=== PATIENT | female | born 1950 | race Caucasian/White ===

== ENCOUNTER → 2018-04-26 11:31 | Outpatient (CLI) | payer MEDICARE, OTHER, SELFPAY ==
--- NOTE | 2018-04-26 | DI.MG.S_ITS ---
BILATERAL DIGITAL SCREENING MAMMOGRAM 3D/2D WITH CAD: 04/26/2018 CLINICAL: Routine screening. Comparison is made to exams dated: 04/03/2016 mammogram and 06/25/2014 mammogram - [facility]. The tissue of both breasts is heterogeneously dense. This may lower the sensitivity of mammography. Current study was also evaluated with a Computer Aided Detection (CAD) system. No significant masses, calcifications, or other findings are seen in either breast. There has been no significant interval change. IMPRESSION: NEGATIVE There is no mammographic evidence of malignancy. A 1 year screening mammogram is recommended. This exam was interpreted at Station ID: [id number]. NOTE: For mammograms, a report in lay terms will be sent to the patient. Approximately 15% of breast malignancies will not be visualized mammographically. In the management of a palpable breast mass, a negative mammogram must not discourage biopsy of a clinically suspicious lesion. Electronically Signed By: Vianney payan/matias:04/27/2018 13:41:14 letter sent: Normal Exam ACR BI-RADS Category 1: Negative 3341F
== END ==
PROVIDERS: Visit Provider Physician Assistant
DX: Z12.31 Encounter for screening mammogram for malignant neoplasm of breast (principal)
CPT/HCPCS: 77063; 77067

== ENCOUNTER → 2019-02-23 14:37 | Outpatient (CLI) | payer MEDICARE, OTHER, SELFPAY ==
[2019-02-23 15:52] LABS: Progesterone, Total 6.28 ng/mL
[2019-02-23 16:24] LABS: Free T3, Triiodothyronine Free 3.61 pg/mL (2.77-5.27)
[2019-02-23 16:37] LABS: Cortisol Random 6.45 ug/dL
[2019-02-23 16:38] LABS: Thyroid Stimulating Hormone 1.18 uIU/mL (0.47-4.68)
[2019-02-23 16:40] LABS: Testosterone 48.7 ng/dL (5.71-77.0)
[2019-02-25 15:49] LABS: Dehydroepiandrosterone Sulfate 136 mcg/dL (12-133)
== END ==
PROVIDERS: Family Provider Physician Assistant; PCP Physician Assistant
DX: Z79.890 Hormone replacement therapy (principal); E03.9 Hypothyroidism, unspecified; N95.1 Menopausal and female climacteric states
CPT/HCPCS: 36415; 82533; 82627; 82670; 84144; 84403; 84443; 84481

== ENCOUNTER → 2019-03-09 14:19 | Outpatient (CLI) | payer MEDICARE, OTHER, SELFPAY ==
[2019-03-11 16:14] LABS: Dehydroepiandrosterone Sulfate 93 mcg/dL (12-133)
== END ==
PROVIDERS: PCP Physician Assistant; Visit Provider Naturopath
DX: Z79.890 Hormone replacement therapy (principal)
CPT/HCPCS: 36415; 82627

== ENCOUNTER → 2019-05-01 14:10 | Outpatient (CLI) | payer MEDICARE, OTHER, SELFPAY | PROVIDERS: PCP Physician Assistant; Referring Provider Physician Assistant; Visit Provider Physician Assistant | DX: M85.852 Other specified disorders of bone density and structure, left thigh (principal); Z78.0 Asymptomatic menopausal state; E28.39 Other primary ovarian failure | CPT/HCPCS: 77080 ==

== ENCOUNTER → 2019-08-14 15:53 | Outpatient (CLI) | payer MEDICARE, OTHER, SELFPAY | PROVIDERS: PCP Physician Assistant; Referring Provider Naturopath; Visit Provider Naturopath | DX: Z79.890 Hormone replacement therapy (principal) | CPT/HCPCS: 36415; 82627 ==

== ENCOUNTER → 2019-09-20 12:18 | Outpatient (CLI) | payer MEDICARE, OTHER, SELFPAY ==
[2019-09-20 13:45] LABS: C-Reactive Protein Quant < 0.5 mg/dL (<1.0); Rheumatoid Factor < 8.6 IU/mL (<12.0)
[2019-09-20 16:10] LABS: Vitamin D 25 Hydroxy (D3) 72.1 ng/mL (30.0-100.0)
[2019-09-23 18:40] LABS: ANA Screen, IFA Positive (.)
== END ==
PROVIDERS: PCP Physician Assistant; Referring Provider Naturopath; Visit Provider Naturopath
DX: M85.89 Other specified disorders of bone density and structure, multiple sites (principal); M25.50 Pain in unspecified joint; M85.80 Other specified disorders of bone density and structure, unspecified site
CPT/HCPCS: 36415; 82306; 86038; 86140; 86430

== ENCOUNTER → 2020-04-10 17:19 | Outpatient (CLI) | payer MEDICARE, OTHER, SELFPAY ==
--- NOTE | 2020-04-10 | DI.MG.S_ITS ---
BILATERAL DIGITAL SCREENING MAMMOGRAM 3D/2D WITH CAD: 04/10/2020 CLINICAL: Routine screening. Comparison is made to exams dated: 04/26/2018 mammogram - [facility], 04/03/2016 mammogram, and 06/25/2014 mammogram - [facility]. The tissue of both breasts is heterogeneously dense. This may lower the sensitivity of mammography. Current study was also evaluated with a Computer Aided Detection (CAD) system. No significant masses, calcifications, or other findings are seen in either breast. There has been no significant interval change. IMPRESSION: NEGATIVE There is no mammographic evidence of malignancy. A 1 year screening mammogram is recommended. This exam was interpreted at Station ID: [id number]. NOTE: For mammograms, a report in lay terms will be sent to the patient. Approximately 15% of breast malignancies will not be visualized mammographically. In the management of a palpable breast mass, a negative mammogram must not discourage biopsy of a clinically suspicious lesion. Electronically Signed By: John Lugo acr/matias:04/12/2020 17:18:32 letter sent: Normal Exam ACR BI-RADS Category 1: Negative 3341F
== END ==
PROVIDERS: PCP Physician Assistant; Referring Provider Physician Assistant; Visit Provider Physician Assistant
DX: Z12.31 Encounter for screening mammogram for malignant neoplasm of breast (principal)
CPT/HCPCS: 77063; 77067

== ENCOUNTER → 2021-06-17 09:42 | Outpatient (CLI) | payer MEDICARE, OTHER, SELFPAY | PROVIDERS: PCP Physician Assistant; Referring Provider Physician Assistant; Visit Provider Physician Assistant | DX: Z13.820 Encounter for screening for osteoporosis (principal); Z78.0 Asymptomatic menopausal state ==

== ENCOUNTER → 2021-07-08 10:45 | Outpatient (CLI) | payer MEDICARE, OTHER, SELFPAY | PROVIDERS: PCP Physician Assistant; Referring Provider Physician Assistant; Visit Provider Physician Assistant | DX: Z78.0 Asymptomatic menopausal state (principal); Z13.820 Encounter for screening for osteoporosis; M85.852 Other specified disorders of bone density and structure, left thigh; Z79.890 Hormone replacement therapy | CPT/HCPCS: 77080 ==

== ENCOUNTER → 2021-10-22 10:39 | Outpatient (CLI) | payer MEDICARE, OTHER, SELFPAY ==
--- NOTE | 2021-10-22 10:45 | DI.MRI.S_ITS ---
PROCEDURE: MR CERVICAL SPINE WO CON INDICATIONS: Radiculopathy, cervical region TECHNIQUE: Noncontrast sagittal T1 spin echo and T2 fast spin echo, sagittal STIR, foraminal oblique sagittal T2 fast spin echo, and axial gradient echo or T2 fast spin echo through the cervical spine. COMPARISON: None. FINDINGS: Image quality: Excellent. Alignment and Curvature: There is overall straightening of the normal cervical lordosis. There is mild retrolisthesis seen at the C4-C5 level. Bone Marrow: Marrow demonstrates normal overall signal. Spinal Cord: Visualized spinal cord has normal size and signal. No cerebellar tonsillar herniation. Paraspinous Soft Tissues: No paravertebral masses. Prevertebral soft tissues are normal in thickness. C2-C3: Moderate loss of disc height is seen. Loss of disc signal is seen. A mild degree of generalized disc osteophyte complex is seen. No significant neural foraminal or central canal narrowing can be seen. C3-C4: The disc height is well-preserved. Loss of disc signal is seen at this level. Mild to moderate disc osteophyte complex is seen, which is eccentric to the right. There is at least moderate right-sided and moderate left-sided facet hypertrophy. There is moderate to severe right-sided and at least moderate left-sided neural foraminal narrowing. Mild central canal narrowing is seen. C4-C5: Moderate to severe loss of disc height and disc signal can be seen. At least moderate disc osteophyte complex is seen. There is a central disc osteophyte protrusion seen. Uncovertebral joint hypertrophy is seen at this level. At least moderate facet hypertrophy is seen. There is moderate to severe bilateral neural foraminal narrowing seen. At least moderate central canal narrowing is seen, with associated ventral cord flattening, as on series 4, image 23. C5-C6: Moderate loss of disc height is seen. Loss of disc signal is seen. Reactive marrow endplate changes are seen, which are hyperintense on T1-weighted and T2-weighted imaging and most consistent with fatty metaplasia (Modic type II changes). At least moderate disc osteophyte complex is seen. There is a central/right disc osteophyte protrusion. Uncovertebral joint hypertrophy is seen at this level. At least moderate facet hypertrophy is seen. There is moderate to severe bilateral neural foraminal narrowing seen. At least moderate central canal narrowing is seen. There is associated mass effect upon the ventral spinal cord. C6-C7: At least moderate loss of disc height and disc signal can be seen. At least moderate disc osteophyte complex is seen, which is eccentric to the left. There is a central/right disc osteophyte protrusion. Mild to moderate facet hypertrophy is seen at this level. There is moderate to severe bilateral neural foraminal narrowing seen, with an associated a degree of compression seen upon the exiting nerve roots. At least moderate central canal narrowing is seen. There is associated mass effect upon the ventral spinal cord. C7-T1: The disc height is well-preserved. Loss of disc signal is seen at this level. A mild degree of generalized disc osteophyte complex is seen. Mild facet joint hypertrophy is seen. No significant neural foraminal or central canal narrowing can be seen. IMPRESSION: Multiple levels of relatively prominent cervical spine degenerative change are seen, which are overall worst at the C4-C5 level. Straightening of the normal cervical lordosis is seen, which is commonly observed in patients with muscular spasm. Dictated by: Sourav Paez M.D. on 10/22/2021 at 14:28 Approved by: Sourav Paez M.D. on 10/22/2021 at 14:33
== END ==
PROVIDERS: PCP Physician Assistant; Referring Provider Physician Assistant; Visit Provider Physician Assistant
DX: M47.22 Other spondylosis with radiculopathy, cervical region
CPT/HCPCS: 72141

== ENCOUNTER → 2022-06-25 10:07 | Outpatient (CLI) | payer MEDICARE, OTHER, SELFPAY ==
--- NOTE | 2022-06-25 | DI.MG.S_ITS ---
BILATERAL DIGITAL SCREENING MAMMOGRAM 3D/2D WITH CAD: 06/25/2022 CLINICAL: Routine screening. Comparison is made to exams dated: 04/10/2020 mammogram, 04/26/2018 mammogram - [facility], and 04/03/2016 mammogram - [facility]. Both breasts are heterogeneously dense, which may obscure small masses (category c / 51-75% glandular tissue). Current study was also evaluated with a Computer Aided Detection (CAD) system. No significant masses, calcifications, or other findings are seen in either breast. There has been no significant interval change. IMPRESSION: NEGATIVE There is no mammographic evidence of malignancy. A 1 year screening mammogram is recommended. Based on the Tyrer Cuzick model (a risk assessment model) the patient's lifetime risk is 9.1% and her 10 year risk is 5.8%. According to the ACR, ACS, and NCCN guidelines, an annual breast MRI exam along with mammogram is recommended if the patient's lifetime risk is 20% or greater. This exam was interpreted at Station ID: [id number]. NOTE: For mammograms, a report in lay terms will be sent to the patient. Approximately 15% of breast malignancies will not be visualized mammographically. In the management of a palpable breast mass, a negative mammogram must not discourage biopsy of a clinically suspicious lesion. Electronically Signed By: Mg coles/matias:06/25/2022 13:00:29 letter sent: Normal Exam ACR BI-RADS Category 1: Negative 3341F
== END ==
PROVIDERS: PCP Physician Assistant; Referring Provider Physician Assistant; Visit Provider Physician Assistant
DX: Z12.31 Encounter for screening mammogram for malignant neoplasm of breast (principal)
CPT/HCPCS: 77063; 77067

== ENCOUNTER → 2022-08-19 10:47 | Outpatient (CLI) | payer MEDICARE, OTHER, SELFPAY ==
--- NOTE | 2022-08-19 | DI.RAD.S_ITS ---
PROCEDURE: XR HIP W PEL IF DONE RT 2V INDICATIONS: Pain in right hip TECHNIQUE: 2 views of the hip were acquired. COMPARISON: None. FINDINGS: Bones: No fractures or dislocations. No suspicious bony lesions. The visualized pelvic ring appears intact. Moderate bilateral hip joint space narrowing and subchondral sclerosis present. No marginal osteophyte. Femoral head has an appropriate contour. Mild degenerative changes noted in the lower lumbar spine Soft tissues: No suspicious soft tissue calcifications or masses. IMPRESSION: [id number] bilateral hip osteoarthritis Approved by: Juan San M.D. on 08/19/2022 at 13:02
== END ==
PROVIDERS: PCP Physician Assistant; Referring Provider Physician Assistant; Visit Provider Physician Assistant
DX: M25.551 Pain in right hip (principal); M16.0 Bilateral primary osteoarthritis of hip
CPT/HCPCS: 73502

== ENCOUNTER → 2023-02-22 16:10 | Outpatient (CLI) | payer MEDICARE, OTHER, SELFPAY ==
--- NOTE | 2023-02-22 | DI.US.S_ITS ---
PROCEDURE: US PELVIC COMPLETE INDICATIONS: POST MENOPAUSAL BLEEDING TECHNIQUE: Real-time scanning was performed of the pelvic organs, with image documentation. Additional endovaginal scanning was necessary due to incomplete visualization of the adnexal and endometrial structures by transabdominal scanning. COMPARISON: None. FINDINGS: Uterus: Uterus is anteverted and normal in size at 6.8 x 3.2 x 4.4 cm. The myometrium is heterogeneous. The endometrium measures 3 mm combined thickness. Ovaries: The right ovary measures 1.2 x 1.0 x 0.6 cm, with a calculated ovarian volume of 0.37 cc. The left ovary measures 2.1 x 1.4 x 1.3 cm, with a calculated ovarian volume of 1.99 cc. The ovaries have a normal sonographic appearance. Less than 12 follicles can be seen in each ovary. No adnexal masses are seen. Other: No pathologic free abdominal or pelvic fluid. IMPRESSION: 1. Endometrium is within normal limits for thickness in a postmenopausal patient with bleeding (less than 4 mm). We strive to produce accurate, complete, and clear reports of imaging services. To assist us in improving patient care, this report was composed using standard report templates and voice recognition software. Therefore, it may contain abnormal punctuation, insertions and/or omissions. Occasional wrong-word or sound-alike substitutions may occur. Though we review the report and make efforts to correct it, we do recommend that the report be read carefully in proper context to recognize any text inaccuracies. Dictated by: Priti Leahy M.D. on 02/22/2023 at 17:38 Approved by: Priti Leahy M.D. on 02/22/2023 at 17:39
== END ==
PROVIDERS: PCP Physician Assistant; Referring Provider Physician Assistant; Visit Provider Physician Assistant
DX: N95.0 Postmenopausal bleeding (principal)
CPT/HCPCS: 76856

== ENCOUNTER → 2023-08-24 14:50 | Outpatient (CLI) | payer MEDICARE, OTHER, SELFPAY ==
--- NOTE | 2023-08-24 14:53 | DI.RAD.S_ITS ---
PROCEDURE: XR DEXA AXIAL SKELETON INDICATIONS: ASYMPTOMATIC MENOPAUSAL STATE COMPARISON: [facility], CR, XR DEXA AXIAL SKELETON, 07/08/2021, 11:01. [facility], CR, XR DEXA AXIAL SKELETON, 05/01/2019, 14:26. FINDINGS: Lumbar Spine: Bone mineral density 1.156 g/cm2, T score 1.0, previously 0.5. Right Hip: Bone mineral density 0.937 g/cm2, T score 0, previously 0. Right Femoral Neck: Bone mineral density 0.808 g/cm2, T score -0.4, normal. Left Hip: Bone mineral density 0.912 g/cm2, T score -0.2, previously -0.3. Left Femoral Neck: Bone mineral density is 0.679 g/cm2, T score -1.5, osteopenia. Fracture Risk Calculation (when applicable): 10-year fracture risk of a major osteoporotic fracture 10 and of a hip fracture 1.6. (T score greater or equal to -1.0 to: NORMAL) (T score from -1.1 to -2.4: OSTEOPENIA) (T score less than or equal to -2.5: OSTEOPOROSIS) IMPRESSION: Osteopenia. Follow-up guidelines as follows: Osteoporosis: Consider a repeat DEXA and Vertebral Fracture Assessment (VFA) exam in 2 years or sooner if medically necessary, to reassess this patient's status. Osteopenia: Consider a repeat DEXA in 2-3 years to reassess this patient's status, or if there is a new clinical indication. Normal: Consider a repeat DEXA in 5 years or sooner, or if there is a new clinical indication. All treatment decisions require clinical judgment and consideration of individual patient factors, including patient preferences, comorbidities, previous drug use, risk factors not captured in the FRAX model (e.g., frailty, falls, vitamin D deficiency, increased bone turnover, interval significant decline in bone density ) and possible under- or over-estimation of fracture risk by FRAX. In addition, the NOF Guide recommends that FDA-approved medical therapies be considered in postmenopausal women and men age >= 50 years with a: * Hip or vertebral (clinical or morphometric) fracture * T-score of <=-2.5 at the spine or hip * Ten-year fracture probability by FRAX of >= 3% for hip fracture or >=20% for major osteoporotic fracture. People with diagnosed cases of osteoporosis or at high risk for fracture should have regular bone mineral density tests. For patients eligible for Medicare, routine testing is allowed once every 2 years. The testing frequency can be increased to one year for patients who have rapidly progressing disease, those who are receiving or discontinuing medical therapy to restore bone mass, or have additional risk factors. Dictated by: Santana Bright M.D. on 08/24/2023 at 17:05 Approved by: Santana Bright M.D. on 08/24/2023 at 17:06
== END ==
LOC: RAD 14:51
PROVIDERS: PCP Physician Assistant; Referring Provider Physician Assistant; Visit Provider Physician Assistant
DX: M85.852 Other specified disorders of bone density and structure, left thigh (principal); Z78.0 Asymptomatic menopausal state
CPT/HCPCS: 77080

== ENCOUNTER → 2024-10-04 14:10 | Outpatient (CLI) | payer MEDICARE, OTHER, SELFPAY ==
--- NOTE | 2024-10-04 14:11 | DI.MG.S_ITS ---
MM screening mammo BI: 10/04/2024. BI-RADS: 1 CLINICAL: 73-year old female for bilateral screening mammogram. Tyrer-Cuzick lifetime risk of 7.0%. No personal or first-degree family history of breast cancer. PRIOR EXAMS 06/25/2022, 04/10/2020, 04/26/2018. MAMMOGRAPHY TECHNIQUE: 2D and 3D (tomosynthesis) digital mammographic views obtained, with additional images as needed for full coverage. Current study was also evaluated with a Computer Aided Detection (CAD) system. DENSITY C. The breasts are heterogeneously dense, which may obscure small masses. MAMMOGRAPHY FINDINGS Bilateral: No suspicious mass, asymmetry, microcalcification, or other abnormality seen. IMPRESSION: * No evidence of malignancy. RECOMMENDATIONS Bilateral * Annual screening mammography. OVERALL ASSESSMENT CATEGORY BI-RADS-1: Negative. The [employer] recommends annual screening mammography beginning at age 40 for women with average risk of breast cancer. ELECTRONICALLY SIGNED: Ankush Soto M.D. on 10/04/2024 at 07:30:01 PM PT Interpreting Station ID: [id number]
== END ==
LOC: MAMMO 14:11
PROVIDERS: PCP Physician Assistant; Referring Provider Physician Assistant; Visit Provider Physician Assistant
DX: Z12.31 Encounter for screening mammogram for malignant neoplasm of breast (principal); R92.333 Mammographic heterogeneous density, bilateral breasts
CPT/HCPCS: 77063; 77067

== ENCOUNTER → 2025-01-12 11:36 | Outpatient (CLI) | payer MEDICARE, OTHER, SELFPAY ==
--- NOTE | 2025-01-12 11:39 | DI.RAD.S_ITS ---
PROCEDURE: XR HAND RT MIN 3V INDICATIONS: Right distal medial hand pain TECHNIQUE: 3 views of the hand(s) acquired. COMPARISON: None. FINDINGS: Bones: No fractures or dislocations. Carpal bones are normally aligned. No suspicious bony lesions. Significant interphalangeal osteoarthritis. Soft tissues: No suspicious soft tissue calcifications. IMPRESSION: A significant interphalangeal osteoarthritis. Dictated by: Santana Bright M.D. on 01/12/2025 at 12:57 Approved by: Santana Bright M.D. on 01/12/2025 at 12:59
== END ==
LOC: RAD 11:39
PROVIDERS: PCP Physician Assistant; Referring Provider Chiropractor; Visit Provider Chiropractor
DX: M19.041 Primary osteoarthritis, right hand (principal); M79.641 Pain in right hand
CPT/HCPCS: 73130